=== PATIENT | female | born 1945 | race Caucasian/White ===

== ENCOUNTER 2020-09-24 20:22 | Emergency (ER) | payer MEDICARE ==
[~2020-09-24] VITALS: Ht 170.2 cm; Wt 94.3 kg
[~2020-09-24 20:22] MED LIST: ACETAMINOPHEN325 M1 PO; ALEVE220 MG PO; ASPIR 8181 MG PO; BYSTOLIC 5 MG5 M1 PO; CALCIUM 500 +1 EACH PO; CHLORZOXAZONE250 M1 PO; CRESTOR20 MG PO; EDARBYCLOR 40-1 EAC1 PO; KEFLEX500 M1 PO; KEFLEX500 M2 PO; LIVALO2 MG PO; LIVALO4 MG PO; MIRALAX17 GM PO; PLAVIX 75 MG TA75 M1 PO; ROSUVASTATIN CA20 MG PO; VITAMIN B-12500 MCG PO; VITAMIN D325 MCG PO; VOLTAREN GEL 1100 G2 TOP
[2020-09-24] MEDS ORDERED: FLONASE 0.05%50 MCG NARES (20:34)
[2020-09-24] MEDS ORDERED: BYSTOLIC10 MG PO (20:34)
[2020-09-24] MEDS ORDERED: CLOPIDOGREL75 MG PO (20:34)
[2020-09-24] MEDS ORDERED: AZO CRANBERRY1 EAC1 PO (20:34)
[2020-09-24] MEDS ORDERED: VITAMIN C500 M2 PO (20:35)
[2020-09-24 20:58] LABS: HEMATOCRIT 39.1 % (37.0-47.0); HEMOGLOBIN 13.3 gm/dL (12.0-15.0); MCH 32.5 pg (26.0-34.0); MCHC 34.1 g/dL (28.0-37.0); MCV 95.4 fL (80.0-100.0); MPV 10.5 fl. (7.2-11.1); RBC 4.1 mil/uL (4.20-5.00); RDW-CV 12.6 % (10.5-14.5); WBC 8.4 thou/uL (4.0-11.0)
[2020-09-24 21:17] LABS: CREATININE 1.3 mg/dL (0.6-1.3); POTASSIUM 4.1 mmol/L (3.5-5.1)
[2020-09-24 21:21] LABS: ALBUMIN 3.1 g/dL (3.4-5.0); TOTAL BILIRUBIN 0.2 mg/dL (<0.1-1.0); TOTAL PROTEIN 7.3 g/dL (6.4-8.2)
[2020-09-24 22:48] LABS: URINE BILIRUBIN NEGATIVE (Negative); URINE BLOOD NEGATIVE (Negative); URINE CLARITY CLEAR; URINE COLOR YELLOW; URINE GLUCOSE-RANDOM NEGATIVE (Negative); URINE KETONES NEGATIVE (Negative); URINE LEUKOCYTES-REFLEX TRACE (Negative); URINE PROTEIN NEGATIVE (Negative)
[2020-09-24 22:49] LABS: URINE NITRITE-REFLEX POSITIVE (Negative)
[2020-09-24] MEDS ORDERED: MACROBID 100 M100 M1 PO (23:05)
[2020-09-24 23:27] VITALS: BP 172/80
[2020-09-24 23:52] LABS: CASTS None Seen /LPF (None Seen); SQUAMOUS 4-10 Moderate /LPF (0-3)
[2020-09-24 23:53] LABS: BACTERIA-REFLEX >30 Many /HPF (None Seen); CRYSTALS None Seen /LPF (None Seen); URINE RBC None Seen /HPF (0-2); URINE WBC-REFLEX 6-15 Few /HPF (0-5)
--- NOTE | 2020-09-25 11:02 | EKG ---
[place] [address] ELECTROCARDIOGRAM REPORT Name: VADIM COLLINS Room: [facility]#: [id number] Admission: 09/24/20 Attend Phys: Discharge: 09/24/20 Date of : 41 Date of Service: 09/24/202025 Report #: [id number] THIS REPORT FOR: //name// [facility] ED Test Date: 2020-09-24 Test Time: 20:26:27 Pat Name: VADIM COLLINS Department: Room: Gender: F [employer] Engine Engineer: : [id number] Requested By: Jeaneth Aranda Order Number: [id number] MD: Roberto Curtis Measurements Intervals [place] Rate: 73 P: 61 SC: 182 QRS: -3 QRSD: 101 T: 1 QT: 396 QTc: 437 Interpretive Statements Sinus rhythm Probable left atrial enlargement Borderline T abnormalities, inferior leads No previous ECG available for comparison Electronically Signed On 09-25-2020 11:02:29 CDT by Roberto Curtis [email or web address] <ELECTRONICALLY SIGNED> By: Roberto Curtis MD, [facility] 09/25/20 1102 25 25 Roberto Curtis MD, [facility] /EPI
== END 2020-09-24 23:27 | disposition home or self-care (01) ==
LOC: M.ERS 20:22
PROVIDERS: Personal Emergency Response Attendant
DX: S00.83XA Contusion of other part of head, initial encounter (principal); E78.5 Hyperlipidemia, unspecified; I25.10 Atherosclerotic heart disease of native coronary artery without angina pectoris; M19.90 Unspecified osteoarthritis, unspecified site; I12.9 Hypertensive chronic kidney disease with stage 1 through stage 4 chronic kidney disease, or unspecified chronic kidney disease; N18.30 Chronic kidney disease, stage 3 unspecified; Z88.5 Allergy status to narcotic agent; Z88.8 Allergy status to other drugs, medicaments and biological substances; Z79.899 Other long term (current) drug therapy; W18.39XA Other fall on same level, initial encounter; Y93.89 Activity, other specified; Y92.89 Other specified places as the place of occurrence of the external cause; Y99.8 Other external cause status